=== PATIENT | female | born 1980 | race Hispanic/Latino ===

== ENCOUNTER 2022-04-24 09:55 | Emergency (ER) | payer BC ==
--- NOTE | 2022-04-24 11:56 | Emergency Department Report ---
ED General Adult HPI - General Chief complaint: Head Injury Stated complaint: MEDICAL CLEARENCE AFTER FALL Time Seen by Provider: 04/24/22 11:01 Source: patient, EMS Mode of arrival: Stretcher Limitations: No Limitations - History of Present Illness Initial comments: The patient presents to the emergency department the chief complaint of a fall that occurred while at [facility]. Patient states she was walking and got slightly dizzy when she fell hitting occipital parietal region of her head on the floor. Patient denies shortness of breath, chest pain, abdominal pain. -: Sudden Severity scale (0 -10): 0 Improves with: none Worsens with: none Associated Symptoms: denies other symptoms Treatments Prior to Arrival: none - Related Data Allergies Allergy/AdvReac Type Severity Reaction Status Date / Time pollen extracts Allergy Unknown Verified 04/24/22 14:45 ED Review of Systems ROS: Stated complaint: MEDICAL CLEARENCE AFTER FALL Other details as noted in HPI Comment: All other systems reviewed and negative Constitutional: denies: chills, fever Eyes: denies: eye pain, eye discharge, vision change ENT: denies: ear pain, throat pain Respiratory: denies: cough, shortness of breath, wheezing Cardiovascular: denies: chest pain, palpitations Endocrine: no symptoms reported Gastrointestinal: denies: abdominal pain, nausea, diarrhea Genitourinary: denies: urgency, dysuria, discharge Musculoskeletal: denies: back pain, joint swelling, arthralgia Skin: denies: rash, lesions Neurological: denies: headache, weakness, paresthesias Psychiatric: denies: anxiety, depression Hematological/Lymphatic: denies: easy bleeding, easy bruising ED Past Medical Hx - Social History Smoking Status: Never Smoker ED Physical Exam - General Limitations: No Limitations General appearance: alert, in no apparent distress - Head Head exam: Present: atraumatic, normocephalic - Eye Eye exam: Present: normal appearance, PERRL, EOMI - ENT ENT exam: Present: mucous membranes moist - Neck Neck exam: Present: normal inspection - Respiratory Respiratory exam: Present: normal lung sounds bilaterally. Absent: respiratory distress - Cardiovascular Cardiovascular Exam: Present: normal rhythm, tachycardia. Absent: systolic murmur, diastolic murmur, rubs, gallop - GI/Abdominal GI/Abdominal exam: Present: soft, normal bowel sounds. Absent: distended, tenderness - Extremities Exam Extremities exam: Present: normal inspection - Back Exam Back exam: Present: normal inspection - Neurological Exam Neurological exam: Present: alert, oriented X3, CN II-XII intact, other ([id number], regular nose, rapid hand movements intact). Absent: motor sensory deficit - Psychiatric Psychiatric exam: Present: normal affect, normal mood - Skin Skin exam: Present: warm, dry, intact, normal color. Absent: rash ED Course Vital Signs 04/24/22 04/24/22 04/24/22 09:55 10:21 13:01 Temperature 97.4 F L 98.6 F Pulse Rate 110 H 109 H 108 H Respiratory 18 19 13 Rate Blood Pressure 109/75 Blood Pressure 106/72 96/56 [Left] O2 Sat by Pulse 99 95 10 L Oximetry ED Medical Decision Making - Lab Data Result diagrams: 04/24/22 13:42 04/24/22 13:42 Lab Results 04/24/22 04/24/22 Range/Units 13:42 13:42 WBC 6.8 (4.5-11.0) K/mm3 RBC 4.60 (3.65-5.03) M/mm3 Hgb 13.8 (10.1-14.3) gm/dl Hct 40.5 (30.3-42.9) % MCV 88 (79-97) fl MCH 30 (28-32) pg MCHC 34 (30-34) % RDW 14.0 (13.2-15.2) % Plt Count 371 (140-440) K/mm3 Lymph % (Auto) 22.7 (13.4-35.0) % [place] % (Auto) 6.7 (0.0-7.3) % Eos % (Auto) 0.1 (0.0-4.3) % Baso % (Auto) 0.7 (0.0-1.8) % Lymph # (Auto) 1.5 (1.2-5.4) K/mm3 [place] # (Auto) 0.5 (0.0-0.8) K/mm3 Eos # (Auto) 0.0 (0.0-0.4) K/mm3 Baso # (Auto) 0.0 (0.0-0.1) K/mm3 Seg Neutrophils % 69.8 (40.0-70.0) % Seg Neutrophils # 4.7 (1.8-7.7) K/mm3 Sodium 141 (137-145) mmol/L Potassium 4.5 (3.6-5.0) mmol/L Chloride 105.5 (98-107) mmol/L Carbon Dioxide 28 (22-30) mmol/L Anion Gap 12 mmol/L BUN 2 L (7-17) mg/dL Creatinine 0.5 L (0.6-1.2) mg/dL Estimated GFR > 60 ml/min BUN/Creatinine Ratio 4 % Glucose 95 (65-100) mg/dL Calcium 9.7 (8.4-10.2) mg/dL - Medical Decision Making Discussed results with the patient and her father Discussed that the patient's tachycardia is likely secondary to her taking benztropine Critical care attestation.: If time is entered above; I have spent that time in minutes in the direct care of this critically ill patient, excluding procedure time. ED Disposition Clinical Impression: Closed head injury Disposition: 01 HOME / SELF CARE / HOMELESS Is pt being admited?: No Does the pt Need Aspirin: No Condition: Stable Instructions: Head Injury, Adult Additional Instructions: return if worse Time of Disposition: 15:09
--- NOTE | 2022-04-24 13:50 | Cat Scan Report ---
CT head/brain wo con INDICATION / CLINICAL INFORMATION: 41 years Female; closed head injury. TECHNIQUE: Routine CT head without contrast. All CT scans at this location are performed using CT dos e reduction for ALARA by means of automated exposure control. COMPARISON: None. FINDINGS: BRAIN / INTRACRANIAL CONTENTS: No acute hemorrhage, mass effect, midline shift, hydrocephalus, or acu te, large territorial infarct. No signs of significant atrophy or chronic infarct. No significant whi te matter abnormality seen. CRANIOCERVICAL JUNCTION: No significant abnormality. ORBITS: No significant abnormality of visualized orbits. SINUSES / MASTOIDS: Visualized paranasal sinuses and mastoid air cells are essentially clear. ADDITIONAL FINDINGS: None. IMPRESSION: 1. No focal mass, hemorrhage, hydrocephalus, or acute, large territorial infarct. Signer Name: Dontrell Moijca MD, III Signed: 04/24/2022 1:46 PM Workstation Name: [id number]
[2022-04-24 14:25] LABS: Basophils % (Auto) 0.7 % (0.0-1.8); Eosinophils % (Auto) 0.1 % (0.0-4.3); Hematocrit 40.5 % (30.3-42.9); Hemoglobin 13.8 gm/dl (10.1-14.3); Lymphocytes # (Auto) 1.5 K/mm3 (1.2-5.4); Lymphocytes % (Auto) 22.7 % (13.4-35.0); Mean Corpuscular HGB Conc 34 % (30-34); Mean Corpuscular Volume 88 fl (79-97); Monocytes # (Auto) 0.5 K/mm3 (0.0-0.8); Monocytes % (Auto) 6.7 % (0.0-7.3); Platelet Count 371 K/mm3 (140-440)
[2022-04-24 14:49] LABS: Blood Urea Nitrogen 2 mg/dL (7-17); Calcium 9.7 mg/dL (8.4-10.2); Hemolysis Index 12
[2022-04-24 14:54] LABS: BUN/Creatinine Ratio 4
[2022-04-24 15:45] VITALS: BP 114/81
--- NOTE | 2022-04-25 10:52 | Electrocardiograph Report ---
[facility] Test Date: 2022-04-24 Test Time: 11:03:13 Pat Name: NATALIE LYNN Department: Room: Gender: F [employer]ician: HOOD : 1980 Requested By: IRINA GALVEZ Order Number: [id number] Reading MD: Hansel White Measurements Intervals [place] Rate: 93 P: 50 CT: 155 QRS: 80 QRSD: 75 T: -7 QT: 359 QTc: 447 Interpretive Statements Sinus rhythm No previous ECG available for comparison Electronically Signed On 04-25-2022 10:51:44 EDT by Hansel White
== END 2022-04-24 16:35 | disposition home or self-care (01) ==
LOC: ED 09:55
DX: S09.90XA Unspecified injury of head, initial encounter (principal); Z91.09 Other allergy status, other than to drugs and biological substances; W19.XXXA Unspecified fall, initial encounter; Y93.89 Activity, other specified; Y92.89 Other specified places as the place of occurrence of the external cause; Y99.8 Other external cause status
CPT/HCPCS: 36415; 70450; 80048; 85025; 93005; 99284